=== PATIENT | male | born 1985 | race Caucasian/White ===

== ENCOUNTER → 2020-03-20 | Outpatient (CLI) | payer OTHER ==
--- NOTE | 2020-03-20 16:00 | RAD ---
EXAM: Right hand, 3 views. HISTORY: Pain. COMPARISON: None. FINDINGS: 3 views of the right hand are obtained. There is a comminuted mildly displaced and angled limited fracture of the distal fifth metacarpal. There is a tiny ossicle on the radial aspect of the triscaphe joint which is likely due to sequela of remote injury. No radiodense foreign body is seen. IMPRESSION: Comminuted mildly displaced and angled limited fracture of the distal fifth metacarpal. Electronically signed by: Carina Stern MD (03/20/2020 3:57 PM) [id number]
== END ==
LOC: DXRAD 15:17
PROVIDERS: ATTEND Physician Assistant
DX: S62.356A Nondisplaced fracture of shaft of fifth metacarpal bone, right hand, initial encounter for closed fracture (principal); X58.XXXA Exposure to other specified factors, initial encounter; Y93.89 Activity, other specified; Y92.89 Other specified places as the place of occurrence of the external cause; Y99.8 Other external cause status
CPT/HCPCS: 73130